=== PATIENT | male | born 1960 | race Caucasian/White ===

== ENCOUNTER 2020-10-01 05:45 | Inpatient (IN) | payer OTHER ==
[2020-10-01 06:14] LABS: BASOPHIL 0.6 % (0-2); EOSINOPHIL 0.8 % (0-5); HCT 44.4 % (42.0-52.0); LYMPHOCYTE 10.9 % (15-48); MCHC 33.8 g/dL (32.0-36.0); MCV 88.8 fL (78.0-100.0); MONOCYTE 5.3 % (0-12); MPV 11.2 fL (6.0-9.5); NEUTROPHIL 81.7 % (41-80); NRBC 0; PLT 171 K/uL (150-400); RDW 13.7 % (11.5-14.0)
[2020-10-01 06:31] LABS: ALBUMIN 3.5 g/dL (3.4-5.0); BILIRUBIN - TOTAL 0.8 mg/dL (0.2-1.0); BUN/CREAT RATIO (CALC) 14.4 RATIO; CREATININE 0.9 mg/dL (0.67-1.17); GLOBULIN (CALCULATION) 3.9 g/dL; POTASSIUM 3.8 mmol/L (3.5-5.1); TOTAL PROTEIN 7.4 g/dL (6.4-8.2)
[2020-10-01 06:45] LABS: BILIRUBIN 1+ mg/dL (NEGATIVE); BLOOD TRACE-INTACT Ery/uL (NEGATIVE); COLOR YELLOW (YELLOW); GLUCOSE (U) NORMAL (NORMAL); LEUKOCYTES NEGATIVE Leu/uL (NEGATIVE); NITRITE NEGATIVE (NEGATIVE); PROTEIN 3+ mg/dL (NEGATIVE); SPECIFIC GRAVITY 1.025 (1.001-1.030); pH 7.5 (5.0-9.0)
[2020-10-01 06:46] LABS: CLARITY CLOUDY (CLEAR)
[2020-10-01 07:06] LABS: BACTERIA TRACE; MUCOUS TRACE; URINARY RBC RARE
[2020-10-01 07:07] LABS: AMORPHOUS PHOSPHATE CRYSTALS MODERATE
[2020-10-01] MEDS ORDERED: ADALAT CC30 MG PO (15:41)
[2020-10-01] MEDS ORDERED: VALSARTAN160 MG PO (15:42)
[2020-10-01] MEDS ORDERED: CRESTOR10 M1 PO (15:43)
[2020-10-01] MEDS ORDERED: COREG12.5 MG PO (15:43)
[2020-10-01 15:49] LABS: HCT 40.3 % (42.0-52.0); HGB 13.4 g/dl (13.2-18.0); MCH 29.6 pg (25.0-31.0); MCHC 33.3 g/dL (32.0-36.0); MPV 11.2 fL (6.0-9.5); RBC 4.53 M/uL (4.70-6.00); RDW 13.8 % (11.5-14.0); WBC 13.7 K/uL (4.0-10.5)
[2020-10-01 16:04] LABS: BUN/CREAT RATIO (CALC) 14.3 RATIO; CREATININE 0.98 mg/dL (0.67-1.17); MAGNESIUM 2.1 mg/dL (1.8-2.4); POTASSIUM 4.2 mmol/L (3.5-5.1)
[2020-10-02 05:48] LABS: BASOPHIL 0.3 % (0-2); EOSINOPHIL 0.4 % (0-5); HCT 39.8 % (42.0-52.0); LYMPHOCYTE 11.2 % (15-48); MCH 29.5 pg (25.0-31.0); MCHC 32.7 g/dL (32.0-36.0); MCV 90.5 fL (78.0-100.0); MPV 11.8 fL (6.0-9.5); NEUTROPHIL 79.5 % (41-80); NRBC 0; PLT 135 K/uL (150-400); WBC 13.4 K/uL (4.0-10.5)
[2020-10-02 06:21] LABS: ALBUMIN 2.8 g/dL (3.4-5.0); BILIRUBIN - TOTAL 1.2 mg/dL (0.2-1.0); BUN/CREAT RATIO (CALC) 14.6 RATIO; CREATININE 0.89 mg/dL (0.67-1.17); GLOBULIN (CALCULATION) 3.2 g/dL; POTASSIUM 4.3 mmol/L (3.5-5.1)
== END 2020-10-02 13:04 | disposition other institution (70) | DRG 417 ==
LOC: FER 05:45 → FICU 08:45 → FOD 08:45 → FICU 15:30
PROVIDERS: Emergency Medicine; Surgery; ADMIT Internal Medicine
PROC: 0FT44ZZ Resection of Gallbladder, Percutaneous Endoscopic Approach (ICD-10-PCS; principal; 2020-10-01 10:00)
PROC: BF131ZZ Fluoroscopy of Gallbladder and Bile Ducts using Low Osmolar Contrast (ICD-10-PCS; 2020-10-01 10:00)
DX: K80.42 Calculus of bile duct with acute cholecystitis without obstruction (principal); J95.821 Acute postprocedural respiratory failure; J98.11 Atelectasis; E87.2 Acidosis; I10 Essential (primary) hypertension; Z85.46 Personal history of malignant neoplasm of prostate; E78.00 Pure hypercholesterolemia, unspecified; Z90.49 Acquired absence of other specified parts of digestive tract; Z88.0 Allergy status to penicillin; Z20.822 Contact with and (suspected) exposure to COVID-19; E78.5 Hyperlipidemia, unspecified; Z98.890 Other specified postprocedural states; F17.210 Nicotine dependence, cigarettes, uncomplicated; I95.89 Other hypotension; R94.5 Abnormal results of liver function studies
CPT/HCPCS: 36415; 36600; 71045; 74300; 80048; 80053; 81001; 82150; 82803; 83605; 83690; 83735; 84484; 85025; 93005; 94010; 94640; C9113; J0171; J1170; J1956; J2250; J2270; J2405; J2704; J2710; J3010; J3480; J7030; Q9967; U0002